=== PATIENT | male | born 1990 | race Caucasian/White ===

== ENCOUNTER → 2018-12-24 13:38 | Outpatient (CLI) | payer OTHER, SELFPAY ==
--- NOTE | 2018-12-24 | DI.RAD.S_ITS ---
PROCEDURE: XR WRIST LT MIN 3V INDICATIONS: injury to Left hand TECHNIQUE: 4 views of the wrist were acquired. COMPARISON: None. FINDINGS: Bones: Minimal cortical irregularity of the distal metaphysis of the fourth middle phalanx noted, best seen on lateral view. Scaphoid view: The scaphoid appears intact. Soft tissues: No suspicious soft tissue calcifications. IMPRESSION: Minimal cortical irregularity of the distal metaphysis of the left fourth middle phalanx noted, which may represent a developmental variant versus a nondisplaced fracture. Correlation with point tenderness suggested. Consider followup radiographs in 7-10 days if there is continued clinical concern. Dictated by: Abhilash Bullard M.D. on 12/24/2018 at 17:47 Approved by: Abhilash Bullard M.D. on 12/24/2018 at 17:53
== END ==
PROVIDERS: Visit Provider Family Medicine
DX: S69.92XA Unspecified injury of left wrist, hand and finger(s), initial encounter (principal); X58.XXXA Exposure to other specified factors, initial encounter
CPT/HCPCS: 73110

== ENCOUNTER → 2019-01-06 19:58 | Outpatient (CLI) | payer OTHER, SELFPAY ==
--- NOTE | 2019-01-06 | DI.MRI.S_ITS ---
PROCEDURE: MR WRIST LT WO CON INDICATIONS: PAIN IN UNSPECIFIED WRIST TECHNIQUE: Noncontrast coronal proton density fast spin echo and T2 fast spin echo with fat saturation; coronal 3-D gradient echo, axial T1 spin echo and T2 fast spin echo with fat saturation, sagittal T1 spin echo through the wrist. COMPARISON: None. FINDINGS: Image quality: Excellent. Bones and cartilage: Mild soft tissue edema over all aspect of wrist joint is seen. The carpal bones are normally aligned. No bone marrow contusions or fractures. No evidence for avascular necrosis. Overlying cartilage surfaces appear normal. Carpal ligaments: The scapholunate and lunotriquetral ligaments appear intact. In the absence of intra-articular contrast, the extrinsic carpal ligaments are not well identified. On sagittal images, the pisohamate ligament appears intact. Triangular fibrocartilage complex: Subtle signal abnormality involving triangular fibrocartilage near its ulnar insertion is seen, concerning for a focal tear of triangular fibrocartilage near its radial insertion. The adjacent meniscal homolog appears normal in the absence of intra-articular contrast. The extensor carpi ulnaris tendon is normal in location and morphology. Tendons and soft tissues: The carpal tunnel structures appear normal, including the median nerve. The ulnar nerve appears normal within Guyon's canal. There is low-grade tendinosis involving the extensor carpi ulnaris tendon. No evidence of tendon tear. Rest of the extensor tendon compartments demonstrate normal morphology, without pathologic tendon sheath fluid. No soft tissue ganglion cysts. IMPRESSION: 1. No wrist fracture or dislocation. 2. Mild soft tissue swelling over ulnar aspect of left wrist. Low-grade tendinosis involving the extensor carpi ulnaris tendon. Rest of the wrist tendons and ligaments are grossly intact. 3. Finding is concerning for a focal subtle tear involving triangular fibrocartilage near its radial insertion. Dictated by: Mika Wren M.D. on 01/07/2019 at 11:19 Approved by: Mika Wren M.D. on 01/07/2019 at 13:07
== END ==
PROVIDERS: Visit Provider Family Medicine
DX: M25.532 Pain in left wrist (principal); M25.432 Effusion, left wrist
CPT/HCPCS: 73221

== ENCOUNTER → 2019-04-01 09:23 | Outpatient (CLI) | payer OTHER, SELFPAY ==
--- NOTE | 2019-04-01 | DI.CT.S_ITS ---
PROCEDURE: CT ABDOMEN PELVIS WO/W CON INDICATIONS: Calculus of kidney TECHNIQUE: Optional 5 mm thick noncontrast images acquired from the diaphragm to the symphysis pubis. After the administration of intravenous contrast, 5 mm thick images acquired from the diaphragm to the symphysis pubis after a 10-minute delay. 2 mm thick coronal and sagittal reformats were then performed of the kidneys and ureters. For radiation dose reduction, the following was used: automated exposure control, adjustment of mA and/or kV according to patient size. COMPARISON: None. FINDINGS: Image quality: Excellent. Lung bases: Lung bases are clear. Heart size is normal. Urinary system: On precontrast imaging, tiny nonobstructing stones are seen, which measure up to 2 mm on the right side and up to 1 mm on the left. No ureteral stones are seen. Both kidneys are normal in size, without hydronephrosis. No perinephric fat stranding. There is normal bilateral renal enhancement. Renal calyces appear normal in morphology when filled with contrast. Opacified portions of both ureters demonstrate normal caliber. Bladder wall thickness is normal. No calcified bladder stones. Other solid organs: Liver is normal in size and enhancement. Gallbladder wall is not thickened. Biliary system is non dilated. Pancreas enhances normally. Spleen is normal in size and enhancement. No adrenal nodules. Peritoneum and bowel: Bowel loops demonstrate normal wall thickness and caliber. No free fluid or air. Incidental note is made of a normal-appearing appendix. Nodes and vessels: No retroperitoneal or mesenteric adenopathy by size criteria. Aorta and inferior vena cava are normal in size. Abdominal wall: No ventral hernias. Pelvis: No pathologic free pelvic fluid. No inguinal hernias or adenopathy. Bones: No suspicious bony lesions. No vertebral body compression fractures. There is a Schmorl's node seen at the inferior endplate of T11 anteriorly, as on series 6 image 38. S-shaped scoliotic curvature is seen. IMPRESSION: Tiny nonobstructing bilateral renal stones are seen. Incidental note is made of: T11 Schmorl's node S-shaped scoliotic curvature Dictated by: Forrest Barcenas M.D. on 04/01/2019 at 10:35 Approved by: Forrest Barcenas M.D. on 04/01/2019 at 10:38
== END ==
PROVIDERS: PCP Family Medicine; Referring Provider Family Medicine; Visit Provider Family Medicine
DX: N20.0 Calculus of kidney (principal); M51.44 Schmorl's nodes, thoracic region
CPT/HCPCS: 74178; Q9967